=== PATIENT | male | born 1985 | race Caucasian/White ===

== ENCOUNTER 2020-05-27 20:09 | Emergency (ER) | payer MEDICAID, SELFPAY ==
[2020-05-27 20:10] VITALS: BP 156/69; PULSE 125; RESP 18; TEMP 36.8; O2SAT 99; BMI 24.7
--- NOTE | 2020-05-27 20:29 | ED.DCSUM_ITS ---
- ER Visit Summary Date of Service: 05/27/20 Chief Complaint: Mental health evaluation History of Present Illness: The patient is a 35 M patient himself denies complaints. He has a prior history of heroin abuse but has been clean and on Suboxone. According to the family he has paranoid thoughts and difficulty concentrating. The police brought him in [facility] to be sent to [facility]. Patient himself denies being suicidal or homicidal. He does not think he has any problem. Physical Examination: Young male no acute distress vital signs stable afebrile. H EENT exam unremarkable. Neck nontender. No lymphadenopathy. No trauma. Lungs clear to auscultation. Heart regular rhythm rate about 110 no murmur. Chest wall nontender. Abdomen soft nontender. Remedies moves all 4. No track elizabeth. No signs of any self-inflicted wounds. Back nontender. Neurologically is awake alert with no focal motor deficits. He does answer questions and follow commands. Currently he is calm and cooperative. He is not violent nor is he yelling. Test Results: CBC normal white count of 4. Chemistries normal normal creatinine and gap. Tox screen negative. Alcohol pending. EKG sinus tachycardia rate of 112 no acute signs of [place] or ischemia. Covid test is also pending both that and EKG were required by the psychiatric facility prior to acceptance. Emergency Department Course and Treatment: ED mental health work-up. Treatment Plan: Transfer to psychiatric inpatient facility. Pending evaluation from the counseling center crisis personnel. Disposition: Transfer Impression: Acute exacerbation of underlying psychiatric illness This note was generated with Advise Only dictation software. It may contain incorrect words, spelling, and punctuation that were not noted in review of the chart prior to signing ED Disposition - Plan for ED Patient: Referrals: Elliott Mora DO [Primary Care Provider] -
--- NOTE | 2020-05-27 20:34 | EKG12_ITS ---
Test Reason : Blood Pressure : / mmHG Vent. Rate : 112 BPM Atrial Rate : 112 BPM P-R Int : 154 ms QRS Dur : 100 ms QT Int : 332 ms P-R-T Axes : 067 063 049 degrees QTc Int : 453 ms Sinus tachycardia Otherwise normal ECG Confirmed by ЕКАТЕРИНА BOGGS, ADITI ([id number]), brands editor MELVA SANTIAGO ([id number]) on 05/29/2020 11:12:37 AM Referred By: MAMTA Confirmed By:ADITI WILLAMS MD
--- NOTE | 2020-05-27 20:40 | CM.ED ---
SOCIAL WORK Collaboration with Dr. Parsons. Patient has been [place] Slipped and sister here with court documents that patient has been court ordered to [facility]. Once patient is medically cleared, Crisis to evaluate. Sister reports patient is self-pay. Call to Shantel with Crisis to update on the above. Kishan Goodson, DEWER, CERTIFIED SCRUB TECH
[2020-05-27 21:05] LABS: Absolute Lymphocyte Count 1.24 X10^3/uL (0.83-4.51); Absolute Neutrophil Count 2.6 X10^3/uL (2.0-7.7); Basophil# 0.02 X10^3/uL; Basophil% 0.5 % (0-1); Eosinophils% 2.3 % (0-5); Hematocrit 38.6 % (40-54); Hemoglobin 13.3 g/dL (13.0-16.5); Lymphocyte # 1.24 X10^3/ul (4.0); Lymphocyte % 28.1 % (19-41); Mean Corp Hgb Conc 34.5 g/dL (32-36); Mean Corpuscular Hgb 31.7 pg (27.0-32.0); Mean Corpuscular Volume 91.9 fL (80-94); Monocyte# 0.44 X10^3/uL; NRBC Flagged by Analyzer 0 % (0-5); Neutrophil # 2.59 X10^3/uL (2.7-7.7); Neutrophil % 58.6 % (47-70); Platelet Count 214 K/mm3 (150-450); RBC Distribution Width CV 14.2 % (11.6-14.6); RBC Distribution Width SD 47.1 fl (35.1-43.9); White Blood Count 4.4 K/mm3 (4.4-11.0)
[2020-05-27 21:22] LABS: AST(SGOT) 19 U/L (15-37); Alanine Aminotransfer ALT/SGPT 22 U/L (16-61); Alkaline Phosphatase 63 U/L (45-117); Anion Gap 5 (5-15); BUN 10 mg/dL (7-18); BUN/Creat Ratio 10.4 RATIO (10-20); Bilirubin, Direct 0.18 mg/dL (0.00-0.30); Calcium,Total 8.6 mg/dL (8.5-10.1); Chloride 109 mmol/L (98-107); Creatinine, Serum 0.96 mg/dL (0.70-1.30); EST Glomerular Filtration Rate 94 mL/min (>60); Est Glom Filt Rate - Afr Amer 113 mL/min (>60); Estimated Creatinine Clearance 116.76 ml/min; Globulin 3.1 g/dL (2.2-4.2); Glucose 95 mg/dL (74-106); Potassium 3.5 mmol/L (3.5-5.1); Protein, Total 7.1 g/dL (6.4-8.2); Sodium Level 142 mmol/L (136-145)
[2020-05-27 21:45] LABS: Amphetamine Urine VISTA NEGATIVE (<1000 ng/mL); Barbiturate Urine VISTA NEGATIVE (< 200 ng/mL); Benzodiazepine Urine VISTA NEGATIVE (< 200 ng/mL); Cocaine Urine VISTA NEGATIVE (< 300 ng/mL); Ecstacy Urine VISTA NEGATIVE (< 500 ng/mL); Methadone Urine VISTA NEGATIVE (< 300 ng/mL); PCP Urine VISTA NEGATIVE (< 25 ng/mL); THC Urine VISTA NEGATIVE (< 50 ng/mL); Vista UDS pH Range 6
[2020-05-27 22:15] LABS: Alcohol, Blood (Medical)-Serum < 3.0 mg/dL
--- NOTE | 2020-05-27 22:28 | ED.RN ---
CALLED CRISIS AND FAXED THE PT CHART TO THE OFFICE FAX NUMBER
[2020-05-27] MEDS: QUEtiapine 25 MG Tablet 50 MG PO (23:40)
[2020-05-27 23:49] VITALS: BP 114/71; PULSE 74; RESP 16; O2SAT 98
[2020-05-28] VITALS (11 sets, daily range): BP systolic 106–148; BP diastolic 60–64; PULSE 78–85; RESP 15–18; O2SAT 98–99
--- NOTE | 2020-05-28 06:04 | ED.RN ---
pt appears to be asleep,resp even.
[2020-05-28] MEDS: Buprenorphine HCl 2 MG TAB.SUBL SL (06:41)
[2020-05-28] MEDS: busPIRone 5 MG Tablet 7.5 MG PO (06:41)
--- NOTE | 2020-05-28 07:53 | NURSING ---
PATIENT ACCEPTED AT [facility]. PER CHERI FAUST. NO BED YET. THEY WILL FOLLOWUP ON IT
--- NOTE | 2020-05-28 11:56 | CM.ED ---
SOCIAL WORK Call to Crisis to check on bed status at [facility], spoke with Anna. Per Anna, [facility] may have bed for patient later this afternoon. Anna to follow up with [facility]. Kishan Goodson, DYNAMICS AX TECHNICAL ARCHITECT, LINE RUNNER
[2020-05-28] MEDS: QUEtiapine 25 MG Tablet PO (12:09)
--- NOTE | 2020-05-28 17:30 | CM.ED ---
SOCIAL WORK Spoke with Shantel from Crisis. Per Shantel, [facility] reported they may have bed this evening for patient. [facility] will be calling [facility] again between 6-6:30p to check on bed availability. Shantel to update this worker. Kishan Goodson, CAP INSPECTOR, SEARCH STRATEGIST
--- NOTE | 2020-05-28 18:24 | CM.ED ---
SOCIAL WORK Patient accepted to [facility]. Crisis to set up transport. Patient's sister mita. Kishan Goodson, CLINICAL RESEARCHER, PARTS AND SERVICE MANAGER
== END 2020-05-28 19:13 ==
LOC: ED 21:23
PROVIDERS: Emergency Provider Emergency Medicine; PCP Family Medicine
DX: F99 Mental disorder, not otherwise specified (principal); Z20.828 Contact with and (suspected) exposure to other viral communicable diseases; F17.220 Nicotine dependence, chewing tobacco, uncomplicated; Z79.899 Other long term (current) drug therapy
CPT/HCPCS: 80048; 80076; 80307; 80320; 85025; 87426; 93005; 99283; G0480

== ENCOUNTER → 2021-11-24 | Outpatient (CLI) | payer MEDICAID, SELFPAY ==
[2021-11-24 09:18] LABS: Cholesterol 199 mg/dL (200); Glucose 112 mg/dL (74-106); High Density Lipoprotein 63 mg/dL; Triglycerides 112 mg/dL; Very Low Density Lipoprotein 22 mg/dL (5-40)
[2021-11-26 21:07] LABS: QNTFERON TB Mitogen Value > 10.00 IU/mL (.); QNTFERON TB Nil Value 0.01 IU/mL (.); QNTFERON TB1+ Ag Value 0.02 IU/mL (.); QNTFERON TB2+ Ag Value 0.05 IU/mL (.)
[2021-11-26 21:19] LABS: QNTIFERON TB Positive Criteria Negative (Negative)
== END | disposition home or self-care (01) ==
PROVIDERS: PCP Family Medicine; Visit Provider Family Medicine
DX: Z00.00 Encounter for general adult medical examination without abnormal findings (principal); Z11.1 Encounter for screening for respiratory tuberculosis
CPT/HCPCS: 36415; 80061; 82947; 86480

== ENCOUNTER → 2023-09-01 | Outpatient (CLI) | payer MEDICARE, MEDICAID, SELFPAY ==
--- OUTSIDE RECORDS SUMMARY | 2023-09-01 11:46 | XMS RPT_ITS | CCD ---
Author Name Unknown Address [address] [place] [address] Organization [facility] Results Test Name Value Interpretation Reference Range Facil ity Procedures Date Procedure Procedure Detail Performing Clinician Start: 10-24-2019 Follow-up visit Start: 10-15-2019 Follow-up visit Start: 10-15-2019 Follow-up visit Start: 09-19-2019 Follow-up visit Start: 09-05-2019 Follow-up visit Start: 08-15-2019 Follow-up visit Start: 07-18-2019 Follow-up visit Start: 06-18-2019 Follow-up visit Start: 06-06-2019 Follow-up visit Summary Purpose Family History No Family History Records FoundNo Family History Records Found Advance Directives No Advanced Directives Records FoundNo Advanced Directives Records Found Additional Source Comments (unrecognized sect ion and content) No Status Records FoundNo Status Records Found INFORMATION SOURCE (unrecogn ized section and content) DATE CREATED AUTHOR AUTHOR'S ORGANBIJAL ATION 03/11/2020 [facility] FOR RECORDS PERTAINING TO PATIENTS WHO ARE OR HAVE BEEN ENROLLED IN A CHEMICAL DEPENDENCY/SUBSTANCEABUSE PROGRAM, SOME INFORMATION MAY BE OMITTED. This clinical summary was aggregated from multiple sources. Caution should be exercised in using it in the provision of clinical care. This summary normalizes information from multiple sources, and as a consequence, information in this document may materially change the coding, format and clinical context of patient data. In addition, data may be omitted in some cases. CLINICAL DECISIONS SHOULD BE BASED ON THE PRIMARY CLINICAL RECORDS. [employer] provides no warranty or guarantee of the accuracy or completeness of information in this document.
[2023-09-01 12:40] LABS: Syphilis Antibodies Non-reactive
== END | disposition home or self-care (01) ==
PROVIDERS: Referring Provider Nurse Practitioner Family; Visit Provider Nurse Practitioner Family
DX: Z72.51 High risk heterosexual behavior (principal)
CPT/HCPCS: 36415; 86780; 87491; 87591; 87661

== ENCOUNTER → 2024-06-18 | Outpatient (CLI) | payer MEDICARE, MEDICAID, SELFPAY ==
[2024-06-18 14:06] LABS: ALB/GLOB Ratio 1.2 RATIO (0.9-2.4); AST(SGOT) 25 U/L (15-37); Alanine Aminotransfer ALT/SGPT 35 U/L (16-61); Albumin, Serum 4.4 g/dL (3.2-5.0); Alkaline Phosphatase 95 U/L (45-117); Anion Gap 3 (5-15); BUN 13 mg/dL (7-18); BUN/Creat Ratio 12.5 RATIO (10-20); Calcium,Total 9.4 mg/dL (8.5-10.1); Chloride 106 mmol/L (98-107); Creatinine, Serum 1.04 mg/dL (0.70-1.30); EST Glomerular Filtration Rate 84 mL/min (>60); Est Glom Filt Rate - Afr Amer 102 mL/min (>60); Globulin 3.6 g/dL (2.2-4.2); Glucose 110 mg/dL (74-106); Potassium 4.1 mmol/L (3.5-5.1); Sodium Level 139 mmol/L (136-145)
[2024-06-18 14:33] LABS: Hepatitis B Surface Antibody Reactive; Hepatitis B Surface Antigen Non-Reactive (Nonreactive)
[2024-06-20 06:10] LABS: Hepatitis A AB, Total Negative (Negative)
== END | disposition home or self-care (01) ==
LOC: LABSPEC 12:43 → LAB 13:02 → LABSPEC 13:02
PROVIDERS: Referring Provider Family Medicine; Visit Provider Family Medicine
DX: F11.20 Opioid dependence, uncomplicated (principal)
CPT/HCPCS: 36415; 80053; 86706; 86708; 87340